=== PATIENT | female | born 1945 | race Caucasian/White ===

== ENCOUNTER 2021-02-08 10:12 | Outpatient (CLI) | payer MEDICARE, BC ==
[~2021-02-08 10:12] MED LIST: IV RINGERS,LACTATED 1000ML 1,000 ML IV SCH
[2021-02-08] MEDS ORDERED: PROPOFOL 10 MG/ML (20ML) VIAL. IV ONE (10:35)
[2021-02-08 11:00] LABS: CREATININE 0.9 mg/dL (0.6-1.0); GFR 61.2
[2021-02-08] MEDS ORDERED: GADOTERATE 5 MMOL/10ML VIAL. IVP ONE (11:30)
[2021-02-08 12:05] VITALS: BP 149/58
--- NOTE | 2021-02-08 17:22 | RAD ---
EXAM: MRI neck soft tissues with and without contrast. HISTORY: Painful left neck mass. TECHNIQUE: MRI of the neck soft tissues was performed before and after the intravenous administration of 20 mL Clariscan. COMPARISON: None. FINDINGS: There are limitations from motion artifact on some series. The examination remains diagnost ic for the following. A low signal mass within the left paraspinous musculature may be have an osseous origin from the left C3-4. There is mild surrounding soft tissue edema. The mass itself does not enhance. It measures rou ghly 2.6 x 1.7 cm There is no clear soft tissue or cartilaginous component. Anterior cervical discectomy and fusion changes are noted at C4-C6. 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 No mass is soft tissue origin is identified in the setting of motion artifact. There are no pathologi dolly enlarged lymph nodes. IMPRESSION: 1. A 2.6 cm left neck mass appears to arise from the left C3-4 lateral elements and may represent bul ky osteophytosis, versus a massive osseous origin. Comparison with plain radiographs or CT of the cer vical spine is recommended for further evaluation. 2. No massive soft tissue origin is identified. Correlate for the site of concern. Electronically signed by: Yrn Tang MD (02/08/2021 5:20 PM) [id number]
== END 2021-02-08 12:28 | disposition home or self-care (01) ==
LOC: MRI 10:12
PROVIDERS: ATTEND Family Medicine
DX: R22.1 Localized swelling, mass and lump, neck (principal); I89.0 Lymphedema, not elsewhere classified; M79.89 Other specified soft tissue disorders; M47.812 Spondylosis without myelopathy or radiculopathy, cervical region
CPT/HCPCS: 36415; 70543; 82565; 84520; A9575; J2704

== ENCOUNTER 2021-03-16 10:00 | Outpatient (CLI) | payer MEDICARE, BC ==
[~2021-03-16 10:00] MED LIST changes: +MORPHINE SULFATE 2 MG/ML INJ. IVP PRN; +PROCHLORPERAZINE 10 MG/2 ML VIAL. IVP PRN; +fentaNYL PF VIAL 100 MCG/2 ML VIAL IVP PRN
[2021-03-16] MEDS ORDERED: PROPOFOL 10 MG/ML (20ML) VIAL. IV ONE (11:20)
[2021-03-16] MEDS ORDERED: GADOTERATE 7.5 MMOL/15ML VIAL. IVP ONE (11:30)
[2021-03-16 12:55] VITALS: BP 147/79
--- NOTE | 2021-03-16 15:54 | RAD ---
EXAMINATION: Magnetic resonance imaging (MRI) of the cervical spine with and without contrast 021 10:56 AM HISTORY: Radicular neck pain. TECHNIQUE: Multiplanar multi-weighted MRI of the cervical spine was performed with and without intrav enous contrast using the standard cervical spine protocol. Contrast information: Gadolinium based contrast COMPARISON: CT cervical spine 03/16/2021, MRI face 02/08/2021 FINDINGS: Evaluation is degraded by motion artifact. There is 4 mm anterolisthesis of C7 on T1. Anterior cervic al discectomy and fusion hardware is identified at C5-C6 with ventral plate and screws. Mild disc hei ght loss at C4-C5 and C6-C7. There is disc desiccation at all levels of the cervical spine. Cervical spinal cord signal intensity is normal in all sequences, although limited in evaluation secondary to motion artifact. Posterior fossa is normal in appearance. Vertebral artery flow voids are maintained. Sella and suprasellar cistern appear normal. Skull base is intact. There is signal alteration corres ponding with previously suspected left neck mass which follows osseous signal on all sequences. Findi ngs favor exuberant osteophytosis associated with facet arthropathy at the left C3-C4 facet joint. Ot herwise, neck soft tissues are normal in appearance. Comparison with any prior imaging could be of be nefit. C2-C3: Mild disc bulge. Moderate left and moderate facet arthropathy. Mild left foraminal stenosis. N o spinal canal stenosis. C3-C4: There is a mild disc bulge. There is severe left facet arthropathy. Mild right facet arthropat hy. Mild uncovertebral joint disease. Moderate to severe left and moderate right neural foraminal hunter nosis. Mild spinal canal stenosis without deformity cord or cord signal alteration. Findings exacerba arun by ligamentum flavum infolding. C4-C5: There is a posterior discussed by complex. Moderate right and mild left facet arthropathy. Mil d to moderate uncovertebral joint disease. Severe right and moderate severe left neural foraminal hunter nosis. Moderate spinal canal stenosis with mild deformity of the cord. No cord signal alteration. C5-C6: This level is fused, limited in evaluation secondary to hardware artifact. Mild facet arthropa thy. No spinal canal stenosis. C6-C7: This posterior disc osteophyte complex. Mild facet arthropathy. Moderate uncovertebral joint d isease. Moderate bilateral neuroforaminal stenosis. Mild to moderate spinal canal stenosis with mild deformity ventral cord. No cord signal alteration. C7-T1: There is a posterior disc osteophyte complex. Mild facet arthropathy. Mild uncovertebral joint disease. Mild bilateral neuroforaminal stenosis. No spinal canal stenosis. IMPRESSION: 1. Left paraspinal soft tissue mass favor is exuberant osteophytosis associated with the left C3-C4 f acet. Findings are confirmed with concurrent CT imaging. 2. Anterior cervical discectomy and fusion at C5-C6. No evidence for hardware failure. Moderate cervi can spondylosis as detailed above. Electronically signed by: Isi Wilson MD (03/16/2021 3:52 PM) [id number]
--- NOTE | 2021-03-16 16:57 | RAD ---
CT C-Spine without contrast: Clinical History: Reason: CERVICAL RADICULOPATHY / Spl. Instructions: / History: Technique: Axial helical images of the cervical spine were obtained without contrast, axial coronal and sagittal reconstruction was performed. Findings: There is beam hardening or fracture due to hardware from prior anterior fusion of C5-C6 with anterior plate and screws and intervertebral device. There is no loss of vertebral body stature. There is no prevertebral soft tissue swelling. There is mild degenerative anterolisthesis of C3 on C4. The C1-C2 relationship is normal. There is large lateral osteophytes the largest is on the left at C3-C4 and measures 3.6 x 2.3 cm and arises from the lateral facet. Evaluation central canal is limited without contrast. There is diffuse disc ossific ridges and hypert rophy of facets at multiple levels. At C3-C4 there is flattening of thecal sac and attenuation of CSF anterior to the cord and there is s evere narrowing of the neuroforamen bilaterally left worse than right. At C4-C5 there is complete effacement of CSF anterior to the cord and there is likely mild impression on the anterior surface the cervical cord. There is marked narrowing of the neuroforamen bilaterally left worse than right. At C5-C6 there is flattening of thecal sac and effacement CSF anterior to the cord and is likely mild impression on the anterior surface the cervical cord. There is mild narrowing at neuroforamen bilate rally left worse than right. At C6-C7 there is flattening of thecal sac and there is moderate narrowing of the neuroforamen bilate rally right worse than left. At C7-T1 there is moderate narrowing of the neuroforamen bilaterally. Impression: 1. 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 2. Significant facet arthropathy with a large lateral osteophyte on the left at C3-C4 also seen on th e previous MRI. 3. Prior anterior fusion of C5-C6. End impression PQRS Compliance Statement: One or more of the following individualized dose reduction techniques were utilized for this examinat ion: 1. Automated exposure control 2. Adjustment of the mA and/or kV according to patient size 3. Use of iterative reconstruction technique Electronically signed by: Juni Atwood III, MD (03/16/2021 4:54 PM) [facility]
== END 2021-03-16 13:05 | disposition home or self-care (01) ==
LOC: CT 10:00
PROVIDERS: ATTEND Neurological Surgery
DX: M47.812 Spondylosis without myelopathy or radiculopathy, cervical region (principal); M48.03 Spinal stenosis, cervicothoracic region; M48.8X3 Other specified spondylopathies, cervicothoracic region; M43.8X2 Other specified deforming dorsopathies, cervical region; M50.11 Cervical disc disorder with radiculopathy, high cervical region; M43.13 Spondylolisthesis, cervicothoracic region; M50.322 Other cervical disc degeneration at C5-C6 level; M48.8X2 Other specified spondylopathies, cervical region; M53.83 Other specified dorsopathies, cervicothoracic region; Z98.1 Arthrodesis status; M25.78 Osteophyte, vertebrae
CPT/HCPCS: 72125; 72156; A9575; J2704

== ENCOUNTER → 2021-04-20 | Outpatient (CLI) | payer MEDICARE, BC ==
[~2021-04-20] MED LIST changes: +ALBU2.5V8 IH; +ALPR0.5T6 PO; +AMLO-187 PO; +ATOR40TA59 PO; +CELE100C PO; +FURO40TA4 PO; +GLIP10TA13 PO; +HYDR12.58 PO; -IV RINGERS,LACTATED 1000ML 1,000 ML IV SCH; +METF100010 PO; +METO50TA4 PO; -MORPHINE SULFATE 2 MG/ML INJ. IVP PRN; +MULT-496 PO; -PROCHLORPERAZINE 10 MG/2 ML VIAL. IVP PRN; -fentaNYL PF VIAL 100 MCG/2 ML VIAL IVP PRN
--- NOTE | 2021-04-20 15:07 | EKG ---
[facility] [address] [place] [id number] Test Date: 2021-04-20 Test Time: 15:04:39 Pat Name: AMY ROBERTS Department: Room: Gender: F Etcher Electrolytic: MEENU : 1945 Requested By: KIT MARCANO Order Number: [id number] Reading MD: Sly Crump Measurements Intervals [place] Rate: 82 P: 61 [place]: 140 QRS: 36 QRSD: 86 T: 28 QT: 380 QTc: 447 Interpretive Statements SINUS RHYTHM PREMATURE VENTRICULAR COMPLEX Electronically Signed On 04-21-2021 21:55:52 [employer] by Sly Crump
[2021-04-20 15:29] LABS: BASO # 0.1 x10^3/uL (0.0-0.2); BASO % 1 % (0-3); EOS # 0.4 x10^3/uL (0.0-0.7); EOS % 4 % (0-3); HEMATOCRIT 42.8 % (36.0-47.0); HEMOGLOBIN 13.7 g/dL (12.0-15.5); LYMPH # 0.9 x10^3/uL (1.0-4.8); LYMPH % 9 % (24-48); MEAN CORPUSCULAR HEMOGLOBIN 25 pg (25-35); MEAN CORPUSCULAR HGB CONC 32 g/dL (31-37); MEAN CORPUSCULAR VOLUME 78 fL (79-100); MONO # 0.7 x10^3/uL (0.0-1.1); MONO % 7 % (0-9); NEUT # 8.1 x10^3/uL (1.8-7.7); NEUT % 81 % (31-73); PLATELET COUNT 274 x10^3/uL (140-400); RED BLOOD COUNT 5.47 x10^6/uL (3.50-5.40); RED CELL DISTRIBUTION WIDTH 15.5 % (11.5-14.5); WHITE BLOOD COUNT 10.1 x10^3/uL (4.0-11.0)
[2021-04-20 15:45] LABS: ALBUMIN 3.6 g/dL (3.4-5.0); ALBUMIN/GLOBULIN RATIO 0.8 (1.0-1.7); CALCIUM 9.2 mg/dL (8.5-10.1); CREATININE 0.8 mg/dL (0.6-1.0); GFR 70.1; POTASSIUM 3.6 mmol/L (3.5-5.1); TOTAL BILIRUBIN 0.3 mg/dL (0.2-1.0); TOTAL PROTEIN 8.2 g/dL (6.4-8.2)
== END ==
LOC: SURGPAT 13:45
PROVIDERS: ATTEND Neurological Surgery
DX: Z01.818 Encounter for other preprocedural examination (principal); D16.6 Benign neoplasm of vertebral column
CPT/HCPCS: 36415; 80053; 85025; 87641; 93005